=== PATIENT | female | born 1985 | race African-American/Black ===

== ENCOUNTER 2023-01-01 07:57 | Emergency (ER) | payer MEDICAID ==
[~2023-01-01] VITALS: Ht 175.3 cm; Wt 64.0 kg
[2023-01-01 08:06] VITALS: BP 142/69
[2023-01-01] MEDS ORDERED: IBUPROFEN 600MG TABLET PO ONE (09:30)
== END 2023-01-01 09:35 | disposition home or self-care (01) ==
LOC: ER 07:57
DX: M54.2 Cervicalgia (principal); V49.9XXA Car occupant (driver) (passenger) injured in unspecified traffic accident, initial encounter; Y93.89 Activity, other specified; Y92.89 Other specified places as the place of occurrence of the external cause; Y99.8 Other external cause status
CPT/HCPCS: 81025; 99283